=== PATIENT | male | born 1965 | race African-American/Black ===

== ENCOUNTER 2018-07-23 14:49 | Emergency (ER) | payer OTHER ==
[~2018-07-23] VITALS: Ht 170.2 cm; Wt 68.0 kg
[~2018-07-23 14:49] MED LIST: AMLO10TA80 PO; ATOR40TA70 PO; CARV6.2548 PO; CLOP75TA33 PO; LISI10TA5 PO
[2018-07-23] MEDS ORDERED: SODIUM CHLORIDE 0.9% 1,000 ML IV ONE (15:22)
[2018-07-23] MEDS ORDERED: DEXTROSE 50% WATER 50ML SYRINGE IV ONE (15:30)
[2018-07-23 17:02] LABS: BASOPHILS % 0.9 % (0.0-2.0); EOSINOPHILS % 3.1 % (0.0-5.0); HEMATOCRIT. 38.1 % (42.0-52.0); HEMOGLOBIN. 12.4 g/dL (14.0-18.0); LYMPHOCYTES % 17.1 % (20.0-50.0); MEAN CORPUSCULAR HEMOGLOBIN 30.3 pg (28.0-32.0); MEAN CORPUSCULAR VOLUME 92.8 fL (80.0-94.0); MEAN PLATELET VOLUME 11.1 fl (7.4-10.4); MONOCYTES % 7.6 % (2.0-8.0); NEUTROPHILS % 71.3 % (40.0-76.0); PLATELET 102 x1000/uL (130-400); RED BLOOD CELL COUNT 4.11 mill/uL (4.7-6.1); RED CELL DISTRIBUTION WIDTH 20.4 % (11.6-14.6)
[2018-07-23 17:03] LABS: CHLORIDE 101 mEq/L (98-107)
[2018-07-23 17:07] LABS: ETHANOL BLOOD < 10 mg/dL; INR 1.1; PARTIAL THROMBOPLASTIN TIME 30.1 sec (23.4-31.0); PROTHROMBIN TIME 11.1 sec (9.1-11.1)
[2018-07-23] MEDS ORDERED: SODIUM BICARBONATE 8.4% 1 MEQ/ML 50ML SYR IV ONE (18:00)
[2018-07-23] MEDS ORDERED: SODIUM POLYSTYRENE SULFONATE 15 G/60 ML BOT PO ONE (18:00)
[2018-07-23] MEDS ORDERED: ALBUTEROL (0.083%) 2.5MG/3ML NEB HHN ONE (18:00)
[2018-07-23 19:41] VITALS: BP 135/30
== END 2018-07-23 19:57 | disposition left against medical advice (07) ==
LOC: ER 14:56 → CANBEDREQ 22:03
DX: E11.649 Type 2 diabetes mellitus with hypoglycemia without coma (principal); E11.22 Type 2 diabetes mellitus with diabetic chronic kidney disease; I12.0 Hypertensive chronic kidney disease with stage 5 chronic kidney disease or end stage renal disease; N18.6 End stage renal disease; Z99.2 Dependence on renal dialysis; Z79.899 Other long term (current) drug therapy; Z86.73 Personal history of transient ischemic attack (TIA), and cerebral infarction without residual deficits
CPT/HCPCS: 36415; 70450; 71045; 80053; 80307; 80329; 82962; 83880; 84484; 85025; 85610; 85730; 93005; 94644; 96360; 99285; G0482; J3490; J7030; J7611

== ENCOUNTER 2018-10-08 16:17 | Inpatient (IN) | payer MEDICARE, OTHER ==
[~2018-10-08] VITALS: Ht 172.7 cm; Wt 73.1 kg
[2018-10-08 17:03] LABS: BASOPHILS % 1.1 % (0.0-2.0); EOSINOPHILS % 0.4 % (0.0-5.0); HEMATOCRIT. 42.2 % (42.0-52.0); HEMOGLOBIN. 13.3 g/dL (14.0-18.0); LYMPHOCYTES % 10.7 % (20.0-50.0); MEAN CORPUSCULAR HEMOGLOBIN 29.6 pg (28.0-32.0); MEAN CORPUSCULAR VOLUME 94.1 fL (80.0-94.0); MEAN PLATELET VOLUME 12.5 fl (7.4-10.4); MONOCYTES % 9.9 % (2.0-8.0); NEUTROPHILS % 77.9 % (40.0-76.0); PLATELET 135 x1000/uL (130-400); RED BLOOD CELL COUNT 4.48 mill/uL (4.7-6.1); RED CELL DISTRIBUTION WIDTH 19.1 % (11.6-14.6)
[2018-10-08] MEDS ORDERED: INSULIN REGULAR (HUMULIN R) UD 100 UNITS/ML SYR SUBCUT ONE (17:15)
[2018-10-08] MEDS ORDERED: IOHEXOL-350 100 ML BOTTLE ONE (17:19)
[2018-10-08] MEDS ORDERED: ONDANSETRON HCL 4MG/2ML INJ IV ONE (17:30)
[2018-10-08 17:34] LABS: BG BASE EXCESS -8.9 mmol/L (-2.0-2.0); BG CARBOXYHEMOGLOBIN 0.6 % (0.5-1.5); BG DEOXYHEMOGLOBIN 2.8 % (0.0-5.0); BG FRACTION INSPIRED OXYGEN 21; BG HCO3 ACT 15.4 mmol/L (22.0-26.0); BG METHEMOGLOBIN 0.1 % (0.0-1.5); BG OXYGEN SATURATION 97.2 % (92.0-98.5); BG OXYHEMOGLOBIN 96.5 % (94.0-97.0); BG PCO2 28.6 mmHg (35.0-45.0); BG PH 7.349 (7.350-7.450); BG PO2 102.8 mmHg (75.0-100.0); BG SAMPLE SITE RIGHT BRACHIAL; BG TOTAL HEMOGLOBIN 12.2 g/dL (12.0-18.0); BG VENT MODE ROOM AIR
[2018-10-08] MEDS ORDERED: INSULIN REGULAR (HUMULIN R) 300UNITS/3ML SUBCUT NR (17:45)
[2018-10-08 17:57] LABS: CHLORIDE 93 mEq/L (98-107)
[2018-10-08 17:57] LABS: INR 1.2; PARTIAL THROMBOPLASTIN TIME 26.8 sec (23.4-31.0); PROTHROMBIN TIME 11.8 sec (9.1-11.1)
[2018-10-08] MEDS ORDERED: PANTOPRAZOLE SODIUM 40 MG/VIAL IV ONE (18:00)
[2018-10-08 18:01] LABS: ETHANOL BLOOD < 10 mg/dL
[2018-10-08 18:03] LABS: BETA HYDROXYBUTYRATE 5.1 mMol/L (0.0-0.3)
[2018-10-08] MEDS ORDERED: SODIUM POLYSTYRENE SULFONATE 15 G/60 ML BOT PO ONE (18:15)
[2018-10-08] MEDS ORDERED: CALCIUM GLUCONATE 100MG/ML 10ML VIAL IV ONE (18:15)
[2018-10-08] MEDS ORDERED: INSULIN REGULAR (HUMULIN R) 300UNITS/3ML IV ONE (18:15)
[2018-10-08] MEDS ORDERED: SODIUM BICARBONATE 8.4% 1 MEQ/ML 50ML SYR IV ONE (18:15)
[2018-10-08] MEDS ORDERED: ALBUTEROL (0.083%) 2.5MG/3ML NEB HHN ONE (18:15)
[2018-10-08] MEDS ORDERED: INSULIN REGULAR (DRIP) 100 UNITS in SODIUM CHLORIDE 0.9% 100 ML IV ONE (18:45)
[2018-10-08] MEDS ORDERED: INSULIN REGULAR (DRIP) 100 UNITS in SODIUM CHLORIDE 0.9% 99 ML IV NR (19:15)
[2018-10-08] MEDS ORDERED: CLONIDINE 0.1MG TABLET PO PRN (20:45)
[2018-10-08] MEDS ORDERED: INSULIN REGULAR (DRIP) 100 UNITS in SODIUM CHLORIDE 0.9% 100 ML IV SCH (20:45)
[2018-10-08] MEDS ORDERED: DIPHENHYDRAMINE 50MG/ML VIAL IV PRN (20:45)
[2018-10-08] MEDS ORDERED: ACETAMINOPHEN 325MG TABLET PO PRN (20:45)
[2018-10-08] MEDS: SODIUM CHLORIDE 0.9% 500 ML IV SCH (21:15)
[2018-10-08 22:00] VITALS: BP 62/33
[2018-10-08] MEDS ORDERED: DEXTROSE 50% WATER 50ML SYRINGE IV PRN (22:00)
[2018-10-08] MEDS: BLOOD SUGAR DIAGNOSTIC STRIP TEST SCH ×2 (22:10→23:00)
[2018-10-08] MEDS: SODIUM CHLORIDE 0.9% 1,000 ML IV SCH (22:21)
[2018-10-08 22:30] VITALS: BP 114/38
[2018-10-08 23:00] VITALS: BP 102/28
[2018-10-08 23:30] VITALS: BP 102/48
[2018-10-09] VITALS (42 sets, daily range): BP systolic 50–209; BP diastolic 16–168
[2018-10-09] MEDS: BLOOD SUGAR DIAGNOSTIC STRIP TEST SCH ×12 (01:00→21:05)
[2018-10-09] MEDS: PHENYLEPHRINE 40 MG in DEXT 5% WATER 246 ML IV PRN ×3 (01:13→21:06)
[2018-10-09] MEDS: INSULIN REGULAR (DRIP) 100 UNITS in SODIUM CHLORIDE 0.9% 100 ML IV SCH ×2 (02:23→04:16)
[2018-10-09] MEDS: SODIUM CHLORIDE 0.9% 500 ML IV SCH (02:24)
[2018-10-09 04:59] LABS: HEMATOCRIT. 36.6 % (42.0-52.0); HEMOGLOBIN. 11.8 g/dL (14.0-18.0); MEAN CORPUSCULAR HEMOGLOBIN 28.9 pg (28.0-32.0); MEAN CORPUSCULAR VOLUME 89.6 fL (80.0-94.0); MEAN PLATELET VOLUME 11.5 fl (7.4-10.4); PLATELET 170 x1000/uL (130-400); RED BLOOD CELL COUNT 4.08 mill/uL (4.7-6.1); RED CELL DISTRIBUTION WIDTH 18.7 % (11.6-14.6)
[2018-10-09 05:10] LABS: CHLORIDE 102 mEq/L (98-107)
[2018-10-09 05:18] LABS: BETA HYDROXYBUTYRATE 0.1 mMol/L (0.0-0.3)
[2018-10-09] MEDS: ONDANSETRON HCL 4MG/2ML INJ IV PRN ×2 (08:40→19:59)
[2018-10-09] MEDS: SODIUM CHLORIDE 0.9% 1,000 ML IV SCH (11:29)
[2018-10-09] MEDS ORDERED: INSULIN GLARGINE UD 100 UNITS/ML SYR SUBCUT NR (12:00)
[2018-10-09 14:49] LABS: PLATELET ESTIMATE NORMAL
[2018-10-09] MEDS: MIDODRINE HCL 5MG TABLET PO SCH (17:12)
[2018-10-09] MEDS: INSULIN LISPRO 100 UNITS/ML SUBCUT SCH ×2 (17:13→21:02)
[2018-10-09 19:53] LABS: T4 FREE 1.24 ng/dL (0.76-1.46)
[2018-10-09] MEDS: ATORVASTATIN CALCIUM 40MG TABLET PO SCH (19:59)
[2018-10-09 20:05] LABS: VITAMIN B12 SERUM >2000 pg/mL pg/mL (211-911)
[2018-10-10] VITALS (102 sets, daily range): BP systolic 37–177; BP diastolic 17–156
[2018-10-10] MEDS: PHENYLEPHRINE 40 MG in DEXT 5% WATER 246 ML IV PRN ×4 (02:34→17:42)
[2018-10-10] MEDS: SODIUM CHLORIDE 0.9% 1,000 ML IV SCH ×2 (03:33→22:16)
[2018-10-10] MEDS: DEXTROSE 50% WATER 50ML SYRINGE IV PRN ×2 (03:33→23:43)
[2018-10-10 06:24] LABS: BASOPHILS % 0.5 % (0.0-2.0); EOSINOPHILS % 0.1 % (0.0-5.0); HEMATOCRIT. 35.8 % (42.0-52.0); HEMOGLOBIN. 11.6 g/dL (14.0-18.0); LYMPHOCYTES % 7.2 % (20.0-50.0); MEAN CORPUSCULAR HEMOGLOBIN 28.9 pg (28.0-32.0); MEAN CORPUSCULAR VOLUME 89.4 fL (80.0-94.0); MONOCYTES % 12.7 % (2.0-8.0); NEUTROPHILS % 79.5 % (40.0-76.0); PLATELET 153 x1000/uL (130-400); RED CELL DISTRIBUTION WIDTH 18.4 % (11.6-14.6)
[2018-10-10] MEDS: BLOOD SUGAR DIAGNOSTIC STRIP TEST SCH ×4 (07:50→20:37)
[2018-10-10] MEDS: INSULIN LISPRO 100 UNITS/ML SUBCUT SCH ×4 (08:20→20:38)
[2018-10-10] MEDS: MIDODRINE HCL 5MG TABLET PO SCH ×4 (09:27→17:12)
[2018-10-10] MEDS: CLOPIDOGREL 75MG TABLET PO SCH (09:27)
[2018-10-10] MEDS: ONDANSETRON HCL 4MG/2ML INJ IV PRN ×2 (09:40→21:43)
[2018-10-10] MEDS: HYDROCODONE/ACETAMINOPHEN 5/325MG TABLET PO PRN ×2 (13:03→17:16)
[2018-10-10] MEDS: INSULIN GLARGINE UD 100 UNITS/ML SYR SUBCUT SCH (13:05)
[2018-10-10] MEDS: CEFEPIME 1,000 MG in DEXTROSE 5% WATER 50 ML IV SCH (17:09)
[2018-10-10] MEDS: NOREPINEPHRINE 32 MG in DEXT 5% WATER 468 ML IV PRN (19:58)
[2018-10-10] MEDS: ATORVASTATIN CALCIUM 40MG TABLET PO SCH (20:37)
[2018-10-10] MEDS ORDERED: METRONIDAZOLE 250MG TABLET PO SCH (22:00)
[2018-10-10] MEDS: METRONIDAZOLE 500 MG PREMIX 100 ML IV SCH (22:10)
[2018-10-10 23:52] LABS: BG BASE EXCESS 1.5 mmol/L (-2.0-2.0); BG CARBOXYHEMOGLOBIN 0.5 % (0.5-1.5); BG DEOXYHEMOGLOBIN 0.9 % (0.0-5.0); BG FRACTION INSPIRED OXYGEN 32; BG HCO3 ACT 24.9 mmol/L (22.0-26.0); BG METHEMOGLOBIN 0.1 % (0.0-1.5); BG OXYGEN SATURATION 99.1 % (92.0-98.5); BG OXYHEMOGLOBIN 98.5 % (94.0-97.0); BG PCO2 35.1 mmHg (35.0-45.0); BG PH 7.468 (7.350-7.450); BG PO2 161.9 mmHg (75.0-100.0); BG SAMPLE SITE RIGHT BRACHIAL; BG TOTAL HEMOGLOBIN 12.2 g/dL (12.0-18.0); BG VENT MODE NASAL CANNULA
[2018-10-11] VITALS (108 sets, daily range): BP systolic 36–151; BP diastolic 13–121
[2018-10-11 05:51] LABS: BASOPHILS % 0.5 % (0.0-2.0); EOSINOPHILS % 0.2 % (0.0-5.0); HEMATOCRIT. 36.2 % (42.0-52.0); HEMOGLOBIN. 11.7 g/dL (14.0-18.0); LYMPHOCYTES % 9.8 % (20.0-50.0); MEAN CORPUSCULAR HEMOGLOBIN 28.9 pg (28.0-32.0); MEAN CORPUSCULAR VOLUME 89.6 fL (80.0-94.0); MEAN PLATELET VOLUME 11.7 fl (7.4-10.4); MONOCYTES % 7.1 % (2.0-8.0); NEUTROPHILS % 82.4 % (40.0-76.0); PLATELET 132 x1000/uL (130-400); RED BLOOD CELL COUNT 4.04 mill/uL (4.7-6.1); RED CELL DISTRIBUTION WIDTH 18.8 % (11.6-14.6)
[2018-10-11] MEDS: BLOOD SUGAR DIAGNOSTIC STRIP TEST SCH ×4 (07:50→21:50)
[2018-10-11] MEDS: INSULIN LISPRO 100 UNITS/ML SUBCUT SCH ×4 (08:20→21:00)
[2018-10-11] MEDS: MIDODRINE HCL 5MG TABLET PO SCH ×4 (10:35→17:17)
[2018-10-11] MEDS: CLOPIDOGREL 75MG TABLET PO SCH (10:35)
[2018-10-11] MEDS: METRONIDAZOLE 500 MG PREMIX 100 ML IV SCH ×2 (10:35→21:56)
[2018-10-11] MEDS: INSULIN GLARGINE UD 100 UNITS/ML SYR SUBCUT SCH (10:38)
[2018-10-11] MEDS: CEFEPIME 1,000 MG in DEXTROSE 5% WATER 50 ML IV SCH (16:50)
[2018-10-11] MEDS: ONDANSETRON HCL 4MG/2ML INJ IV PRN (17:44)
[2018-10-11] MEDS: ATORVASTATIN CALCIUM 40MG TABLET PO SCH (21:58)
[2018-10-11] MEDS: SODIUM CHLORIDE 0.9% 1,000 ML IV SCH (22:12)
[2018-10-11] MEDS ORDERED: PROPOFOL 10MG/ML 100ML 100 ML IV PRN (22:45)
[2018-10-12] VITALS (89 sets, daily range): BP systolic 58–183; BP diastolic 21–153
[2018-10-12] MEDS: ONDANSETRON HCL 4MG/2ML INJ IV PRN ×3 (02:14→16:13)
[2018-10-12] MEDS: DEXTROSE 50% WATER 50ML SYRINGE IV PRN (03:25)
[2018-10-12 06:21] LABS: BASOPHILS % 0.4 % (0.0-2.0); EOSINOPHILS % 0.2 % (0.0-5.0); HEMATOCRIT. 37.7 % (42.0-52.0); HEMOGLOBIN. 12.1 g/dL (14.0-18.0); LYMPHOCYTES % 10.1 % (20.0-50.0); MEAN CORPUSCULAR HEMOGLOBIN 28.9 pg (28.0-32.0); MEAN CORPUSCULAR VOLUME 90.2 fL (80.0-94.0); MEAN PLATELET VOLUME 11.2 fl (7.4-10.4); MONOCYTES % 6.9 % (2.0-8.0); NEUTROPHILS % 82.4 % (40.0-76.0); PLATELET 142 x1000/uL (130-400); RED BLOOD CELL COUNT 4.18 mill/uL (4.7-6.1); RED CELL DISTRIBUTION WIDTH 18.6 % (11.6-14.6)
[2018-10-12] MEDS: BLOOD SUGAR DIAGNOSTIC STRIP TEST SCH ×4 (07:50→21:34)
[2018-10-12] MEDS: INSULIN LISPRO 100 UNITS/ML SUBCUT SCH ×4 (08:20→21:00)
[2018-10-12] MEDS: METRONIDAZOLE 500 MG PREMIX 100 ML IV SCH ×2 (08:45→21:58)
[2018-10-12] MEDS: MIDODRINE HCL 5MG TABLET PO SCH ×4 (09:01→13:50)
[2018-10-12] MEDS: CLOPIDOGREL 75MG TABLET PO SCH (09:01)
[2018-10-12] MEDS: INSULIN GLARGINE UD 100 UNITS/ML SYR SUBCUT SCH (11:53)
[2018-10-12] MEDS: NOREPINEPHRINE 32 MG in DEXT 5% WATER 468 ML IV PRN (11:55)
[2018-10-12] MEDS ORDERED: PANTOPRAZOLE SODIUM 40 MG/VIAL IV SCH (12:45)
[2018-10-12] MEDS: METOCLOPRAMIDE HCL 10MG/2ML VIAL IV SCH ×2 (13:41→18:53)
[2018-10-12] MEDS: DEXT 5%/0.9% NACL 1,000 ML IV SCH (14:17)
[2018-10-12] MEDS: CEFEPIME 1,000 MG in DEXTROSE 5% WATER 50 ML IV SCH (16:14)
[2018-10-12 16:46] LABS: TOTAL IRON BINDING CAPACITY 186 ug/dL (250-450)
[2018-10-12] MEDS: ATORVASTATIN CALCIUM 40MG TABLET PO SCH (21:57)
[2018-10-12] MEDS: PANTOPRAZOLE SODIUM 40 MG/VIAL IV SCH (21:57)
[2018-10-13] VITALS (61 sets, daily range): BP systolic 83–175; BP diastolic 23–110
[2018-10-13] MEDS: METOCLOPRAMIDE HCL 10MG/2ML VIAL IV SCH ×4 (00:35→17:44)
[2018-10-13 07:02] LABS: BASOPHILS % 0.5 % (0.0-2.0); EOSINOPHILS % 0.7 % (0.0-5.0); HEMATOCRIT. 33.2 % (42.0-52.0); HEMOGLOBIN. 10.8 g/dL (14.0-18.0); LYMPHOCYTES % 11.1 % (20.0-50.0); MEAN CORPUSCULAR HEMOGLOBIN 29.1 pg (28.0-32.0); MEAN CORPUSCULAR VOLUME 89.7 fL (80.0-94.0); MEAN PLATELET VOLUME 11.1 fl (7.4-10.4); MONOCYTES % 7.9 % (2.0-8.0); NEUTROPHILS % 79.8 % (40.0-76.0); PLATELET 124 x1000/uL (130-400); RED CELL DISTRIBUTION WIDTH 18.3 % (11.6-14.6)
[2018-10-13] MEDS: BLOOD SUGAR DIAGNOSTIC STRIP TEST SCH ×4 (07:50→21:02)
[2018-10-13] MEDS: INSULIN LISPRO 100 UNITS/ML SUBCUT SCH ×4 (08:15→21:14)
[2018-10-13] MEDS: METRONIDAZOLE 500 MG PREMIX 100 ML IV SCH (08:27)
[2018-10-13] MEDS: PANTOPRAZOLE SODIUM 40 MG/VIAL IV SCH ×2 (08:27→21:02)
[2018-10-13] MEDS: MIDODRINE HCL 5MG TABLET PO SCH ×3 (08:28→16:02)
[2018-10-13] MEDS: CLOPIDOGREL 75MG TABLET PO SCH (08:28)
[2018-10-13] MEDS: DEXTROSE 50% WATER 50ML SYRINGE IV PRN (08:41)
[2018-10-13] MEDS: INSULIN GLARGINE UD 100 UNITS/ML SYR SUBCUT SCH (11:36)
[2018-10-13] MEDS: DEXT 5%/0.9% NACL 1,000 ML IV SCH (13:34)
[2018-10-13] MEDS: CEFEPIME 1,000 MG in DEXTROSE 5% WATER 50 ML IV SCH (16:02)
[2018-10-13] MEDS ORDERED: METRONIDAZOLE 500 MG PREMIX 100 ML IV SCH (21:00)
[2018-10-13] MEDS: ATORVASTATIN CALCIUM 40MG TABLET PO SCH (21:02)
== END 2018-10-13 22:25 | disposition short-term general hospital (02) | DRG 40 ==
LOC: ER 16:17 → EDBEDREQ 18:39 → CVICU 18:56 → EDBEDREQ 19:24 → EDBEDREQTM 19:24 → ENRESERV 20:22 → SUPCPDRO 20:29
PROVIDERS: ADMIT Hospitalist; ATTEND Hospitalist
PROC: 5A1D70Z Performance of Urinary Filtration, Intermittent, Less than 6 Hours Per Day (ICD-10-PCS; 2018-10-08)
PROC: 0JBR0ZZ Excision of Left Foot Subcutaneous Tissue and Fascia, Open Approach (ICD-10-PCS; principal; 2018-10-09)
PROC: 02HV33Z Insertion of Infusion Device into Superior Vena Cava, Percutaneous Approach (ICD-10-PCS; 2018-10-09)
PROC: B548ZZA Ultrasonography of Superior Vena Cava, Guidance (ICD-10-PCS; 2018-10-09)
PROC: 4A00X4Z Measurement of Central Nervous Electrical Activity, External Approach (ICD-10-PCS; 2018-10-10)
PROC: 5A1D70Z Performance of Urinary Filtration, Intermittent, Less than 6 Hours Per Day (ICD-10-PCS; 2018-10-10)
PROC: 5A1D70Z Performance of Urinary Filtration, Intermittent, Less than 6 Hours Per Day (ICD-10-PCS; 2018-10-11)
PROC: 5A1D70Z Performance of Urinary Filtration, Intermittent, Less than 6 Hours Per Day (ICD-10-PCS; 2018-10-13)
DX: I63.9 Cerebral infarction, unspecified (principal); E11.10 Type 2 diabetes mellitus with ketoacidosis without coma; G92 Toxic encephalopathy; N18.6 End stage renal disease; E87.0 Hyperosmolality and hypernatremia; I12.0 Hypertensive chronic kidney disease with stage 5 chronic kidney disease or end stage renal disease; K92.2 Gastrointestinal hemorrhage, unspecified; R57.9 Shock, unspecified; G81.94 Hemiplegia, unspecified affecting left nondominant side; E87.5 Hyperkalemia; D64.9 Anemia, unspecified; L85.3 Xerosis cutis; E11.22 Type 2 diabetes mellitus with diabetic chronic kidney disease; R29.810 Facial weakness; E11.51 Type 2 diabetes mellitus with diabetic peripheral angiopathy without gangrene; L89.629 Pressure ulcer of left heel, unspecified stage; E78.5 Hyperlipidemia, unspecified; I25.10 Atherosclerotic heart disease of native coronary artery without angina pectoris; Z95.1 Presence of aortocoronary bypass graft; Z99.2 Dependence on renal dialysis; Z79.899 Other long term (current) drug therapy
CPT/HCPCS: 36415; 36569; 36600; 70496; 70498; 70551; 71045; 76937; 80048; 80320; 82010; 82140; 82375; 82550; 82607; 82728; 82746; 82805; 82962; 83036; 83540; 83550; 83721; 84439; 84443; 84481; 84484; 92610; 93005; 93306; 93880; 93923; 93970; 94640; 96372; 96374; 96375; 99291; C1725; C9113; J0610; J0692; J1815; J2370; J2405; J2765; J3490; J7040; J7042; J7050; J7060; J7611; Q9967; G0480

== ENCOUNTER 2018-11-26 04:36 | Emergency (ER) | payer MEDICARE, OTHER ==
[~2018-11-26] VITALS: Ht 177.8 cm; Wt 86.3 kg
[2018-11-26] MEDS ORDERED: DEXTROSE 50% WATER 50ML SYRINGE IV ONE (05:00)
[2018-11-26 06:37] VITALS: BP 116/31
== END 2018-11-26 06:38 | disposition home or self-care (01) ==
LOC: ER 04:36
DX: E11.649 Type 2 diabetes mellitus with hypoglycemia without coma (principal); E11.22 Type 2 diabetes mellitus with diabetic chronic kidney disease; N18.6 End stage renal disease; Z99.2 Dependence on renal dialysis; Z88.8 Allergy status to other drugs, medicaments and biological substances; Z86.73 Personal history of transient ischemic attack (TIA), and cerebral infarction without residual deficits
CPT/HCPCS: 82962; 93005; 99283

== ENCOUNTER 2019-01-04 11:06 | Inpatient (IN) | payer OTHER, MEDICARE ==
[~2019-01-04] VITALS: Ht 170.2 cm; Wt 72.8 kg
[2019-01-04] VITALS (36 sets, daily range): BP systolic 63–133; BP diastolic 25–118
[2019-01-04] MEDS ORDERED: SODIUM CHLORIDE 0.9% 1,000 ML IV ONE (11:13)
[2019-01-04 11:26] LABS: BASOPHILS % 0.8 % (0.0-2.0); HEMATOCRIT. 29.5 % (42.0-52.0); HEMOGLOBIN. 9.3 g/dL (14.0-18.0); LYMPHOCYTES % 14.5 % (20.0-50.0); MEAN CORPUSCULAR HEMOGLOBIN 31.9 pg (28.0-32.0); MEAN CORPUSCULAR VOLUME 101.6 fL (80.0-94.0); MEAN PLATELET VOLUME 11.3 fl (7.4-10.4); MONOCYTES % 7.3 % (2.0-8.0); NEUTROPHILS % 75.4 % (40.0-76.0); PLATELET 92 x1000/uL (130-400); RED CELL DISTRIBUTION WIDTH 21.6 % (11.6-14.6)
[2019-01-04 11:35] LABS: INR 1.2
[2019-01-04 11:51] LABS: CHLORIDE 100 mEq/L (98-107)
[2019-01-04] MEDS ORDERED: VANCOMYCIN 1 G PREMIX 200 ML IV SCH (12:00)
[2019-01-04] MEDS ORDERED: PIPERACILLIN/TAZOBACTAM 3.375GM/50ML PREMIX IV ONE (12:00)
[2019-01-04] MEDS ORDERED: NOREPINEPHRINE 4MG/250ML PMX 250 ML IV ONE (13:15)
[2019-01-04] MEDS ORDERED: SODIUM CHLORIDE 0.9% 1,000 ML IV SCH (14:58)
[2019-01-04] MEDS ORDERED: ENOXAPARIN 40MG/0.4ML SYR SUBCUT SCH (15:00)
[2019-01-04] MEDS ORDERED: ACETAMINOPHEN 325MG TABLET PO PRN (15:00)
[2019-01-04] MEDS ORDERED: LORAZEPAM 2MG/ML CPJ IV PRN (15:00)
[2019-01-04] MEDS ORDERED: CLONIDINE 0.1MG TABLET PO PRN (15:00)
[2019-01-04] MEDS ORDERED: MAGNESIUM/ALUMINUM HYDROXIDE/SIMETHICONE 30ML UDC PO PRN (15:00)
[2019-01-04] MEDS ORDERED: NA PHOS,M-B/NA PHOS,DI-BA ENEMA 118ML PR PRN (15:00)
[2019-01-04] MEDS ORDERED: IPRATROPIUM/ALBUTEROL 0.5-3(2.5)MG/3ML NEB INH PRN (15:00)
[2019-01-04] MEDS ORDERED: PIPERACILLIN/TAZ 3.375G PREMIX 50 ML IV SCH (15:00)
[2019-01-04] MEDS ORDERED: GUAIFENESIN 200MG/10ML SUGAR FREE UDC PO PRN (15:00)
[2019-01-04] MEDS ORDERED: DOCUSATE SODIUM 100MG CAPSULE PO PRN (15:00)
[2019-01-04] MEDS ORDERED: INSULIN LISPRO 100 UNITS/ML SUBCUT NR ×2 (18:45→21:15)
[2019-01-04] MEDS: ENOXAPARIN 30MG/0.3ML SYR SUBCUT SCH (18:54)
[2019-01-04] MEDS: INSULIN LISPRO 100 UNITS/ML SUBCUT SCH ×2 (18:55→21:00)
[2019-01-04] MEDS: NOREPINEPHRINE 4 MG in DEXT 5% WATER 246 ML IV PRN (21:21)
[2019-01-04] MEDS: BLOOD SUGAR DIAGNOSTIC STRIP TEST SCH (21:24)
[2019-01-04] MEDS: PIPERACILLIN/TAZ 2.25G PREMIX 50 ML IV SCH (21:31)
[2019-01-04] MEDS: INSULIN GLARGINE UD 100 UNITS/ML SYR SUBCUT SCH (21:31)
[2019-01-05] VITALS (94 sets, daily range): BP systolic 54–207; BP diastolic 24–141
[2019-01-05] MEDS: DIPHENHYDRAMINE 50MG/ML VIAL IV PRN (03:30)
[2019-01-05 06:20] LABS: BASOPHILS % 0.7 % (0.0-2.0); EOSINOPHILS % 3.4 % (0.0-5.0); HEMATOCRIT. 28.4 % (42.0-52.0); HEMOGLOBIN. 9.3 g/dL (14.0-18.0); LYMPHOCYTES % 10.1 % (20.0-50.0); MEAN CORPUSCULAR HEMOGLOBIN 31.6 pg (28.0-32.0); MEAN CORPUSCULAR VOLUME 96.8 fL (80.0-94.0); MONOCYTES % 9.9 % (2.0-8.0); NEUTROPHILS % 75.9 % (40.0-76.0); PLATELET 152 x1000/uL (130-400); RED BLOOD CELL COUNT 2.93 mill/uL (4.7-6.1)
[2019-01-05] MEDS: PIPERACILLIN/TAZ 2.25G PREMIX 50 ML IV SCH ×3 (06:32→22:11)
[2019-01-05 06:55] LABS: CHLORIDE 99 mEq/L (98-107)
[2019-01-05 07:11] LABS: PHOSPHORUS 4.4 mg/dL (2.5-4.9)
[2019-01-05 07:12] LABS: LDL CHOLESTEROL 46 mg/dL (5-100)
[2019-01-05 07:13] LABS: CREATINE KINASE 51 IU/L (39-308); CREATINE KINASE MB FRACTION 2.7 ng/mL (0.5-3.6)
[2019-01-05 07:14] LABS: HDL CHOLESTEROL 58 mg/dL (40-59)
[2019-01-05 07:15] LABS: T4 FREE 1.09 ng/dL (0.76-1.46)
[2019-01-05] MEDS: NOREPINEPHRINE 4 MG in DEXT 5% WATER 246 ML IV PRN ×2 (08:31→20:14)
[2019-01-05] MEDS: ASPIRIN 81MG EC TABLET PO SCH (08:32)
[2019-01-05] MEDS: BLOOD SUGAR DIAGNOSTIC STRIP TEST SCH ×4 (08:36→21:18)
[2019-01-05] MEDS: INSULIN LISPRO 100 UNITS/ML SUBCUT SCH ×4 (08:36→21:17)
[2019-01-05] MEDS ORDERED: VANCOMYCIN 1 G PREMIX 200 ML IV SCH (14:00)
[2019-01-05 14:55] LABS: CLARITY URINE CLEAR (CLEAR); COLOR URINE YELLOW (YELLOW); KETONES URINE NEGATIVE (NEGATIVE); LEUKOCYTE ESTERASE URINE NEGATIVE (NEGATIVE); NITRITE URINE NEGATIVE (NEGATIVE); OCCULT BLOOD URINE NEGATIVE (NEGATIVE); PH URINE >=9.0 (4.5-8.0); PROTEIN URINE NEGATIVE (NEGATIVE); SPECIFIC GRAVITY URINE 1.005 (1.005-1.030); UROBILINOGEN URINE 0.2 E.U./dL (0.2-1.0)
[2019-01-05] MEDS: HYDROMORPHONE HCL/PF 2MG/ML CPJ IV PRN (16:35)
[2019-01-05] MEDS: ENOXAPARIN 30MG/0.3ML SYR SUBCUT SCH (18:25)
[2019-01-05 18:56] LABS: PHENCYCLIDINE URINE SCREEN NEGATIVE (NEGATIVE)
[2019-01-05 18:57] LABS: *AMPHETAMINES SCREEN URINE NEGATIVE (NEGATIVE); *BARBITURATES SCREEN URINE NEGATIVE (NEGATIVE); *BENZODIAZEPINES SCREEN URINE NEGATIVE (NEGATIVE); *COCAINE SCREEN URINE NEGATIVE (NEGATIVE); CANNABINOID URINE SCREEN NEGATIVE (NEGATIVE); METHADONE URINE SCREEN NEGATIVE (NEGATIVE); OPIATES URINE SCREEN NEGATIVE (NEGATIVE)
[2019-01-05] MEDS ORDERED: SUCR500T PO (20:49)
[2019-01-05] MEDS ORDERED: CINA30 PO (20:49)
[2019-01-05] MEDS ORDERED: SEVE800T8 PO (20:49)
[2019-01-05] MEDS ORDERED: HYDR-4001 PO (20:49)
[2019-01-05] MEDS ORDERED: GABA-531 PO (20:49)
[2019-01-05] MEDS: EPOETIN ALFA 10000UNITS/ML VIAL SUBCUT SCH (21:17)
[2019-01-05] MEDS: INSULIN GLARGINE UD 100 UNITS/ML SYR SUBCUT SCH (21:18)
[2019-01-06] VITALS (79 sets, daily range): BP systolic 70–152; BP diastolic 19–132
[2019-01-06] MEDS: HYDROMORPHONE HCL/PF 2MG/ML CPJ IV PRN ×2 (03:55→16:38)
[2019-01-06 06:00] LABS: BASOPHILS % 0.6 % (0.0-2.0); EOSINOPHILS % 4.7 % (0.0-5.0); HEMOGLOBIN. 8.6 g/dL (14.0-18.0); LYMPHOCYTES % 10.9 % (20.0-50.0); MEAN CORPUSCULAR HEMOGLOBIN 32.3 pg (28.0-32.0); MEAN CORPUSCULAR VOLUME 97.3 fL (80.0-94.0); MONOCYTES % 7.9 % (2.0-8.0); NEUTROPHILS % 75.9 % (40.0-76.0); PLATELET 122 x1000/uL (130-400); RED BLOOD CELL COUNT 2.67 mill/uL (4.7-6.1); RED CELL DISTRIBUTION WIDTH 20.8 % (11.6-14.6)
[2019-01-06] MEDS: PIPERACILLIN/TAZ 2.25G PREMIX 50 ML IV SCH ×3 (06:06→22:01)
[2019-01-06] MEDS: DEXTROSE 50% WATER 50ML SYRINGE IV PRN (07:07)
[2019-01-06] MEDS: BLOOD SUGAR DIAGNOSTIC STRIP TEST SCH ×4 (07:51→21:53)
[2019-01-06] MEDS: INSULIN LISPRO 100 UNITS/ML SUBCUT SCH ×4 (08:20→21:00)
[2019-01-06] MEDS: ASPIRIN 81MG EC TABLET PO SCH (09:29)
[2019-01-06] MEDS: ONDANSETRON HCL 4MG/2ML INJ IV PRN ×3 (11:06→21:54)
[2019-01-06] MEDS: HYDROCODONE/ACETAMINOPHEN 5/325MG TABLET PO PRN ×2 (12:07→15:57)
[2019-01-06] MEDS: DIPHENHYDRAMINE 50MG/ML VIAL IV PRN (12:24)
[2019-01-06] MEDS: ENOXAPARIN 30MG/0.3ML SYR SUBCUT SCH (17:42)
[2019-01-06] MEDS: INSULIN GLARGINE UD 100 UNITS/ML SYR SUBCUT SCH (21:53)
[2019-01-07] VITALS (78 sets, daily range): BP systolic 51–211; BP diastolic 17–155
[2019-01-07 06:31] LABS: BASOPHILS % 0.5 % (0.0-2.0); EOSINOPHILS % 5.8 % (0.0-5.0); HEMATOCRIT. 27.4 % (42.0-52.0); HEMOGLOBIN. 8.9 g/dL (14.0-18.0); LYMPHOCYTES % 12.9 % (20.0-50.0); MEAN CORPUSCULAR HEMOGLOBIN 32.3 pg (28.0-32.0); MEAN PLATELET VOLUME 11.8 fl (7.4-10.4); MONOCYTES % 8.1 % (2.0-8.0); NEUTROPHILS % 72.7 % (40.0-76.0); PLATELET 116 x1000/uL (130-400); RED BLOOD CELL COUNT 2.76 mill/uL (4.7-6.1); RED CELL DISTRIBUTION WIDTH 21.3 % (11.6-14.6)
[2019-01-07] MEDS: PIPERACILLIN/TAZ 2.25G PREMIX 50 ML IV SCH ×3 (07:00→22:59)
[2019-01-07 07:10] LABS: PHOSPHORUS 5.5 mg/dL (2.5-4.9)
[2019-01-07] MEDS: ASPIRIN 81MG EC TABLET PO SCH (08:25)
[2019-01-07] MEDS: INSULIN LISPRO 100 UNITS/ML SUBCUT SCH ×4 (08:26→21:00)
[2019-01-07] MEDS: BLOOD SUGAR DIAGNOSTIC STRIP TEST SCH ×4 (08:27→21:01)
[2019-01-07] MEDS: HYDROCODONE/ACETAMINOPHEN 5/325MG TABLET PO PRN ×2 (09:01→21:12)
[2019-01-07] MEDS: MIDODRINE HCL 5MG TABLET PO SCH ×2 (12:18→18:03)
[2019-01-07] MEDS: HYDROMORPHONE HCL/PF 2MG/ML CPJ IV PRN ×2 (12:33→23:27)
[2019-01-07] MEDS: NOREPINEPHRINE 4 MG in DEXT 5% WATER 246 ML IV PRN ×2 (12:43→21:11)
[2019-01-07] MEDS: ONDANSETRON HCL 4MG/2ML INJ IV PRN (17:26)
[2019-01-07] MEDS: ENOXAPARIN 30MG/0.3ML SYR SUBCUT SCH (18:03)
[2019-01-07] MEDS: INSULIN GLARGINE UD 100 UNITS/ML SYR SUBCUT SCH (22:59)
[2019-01-08] VITALS (106 sets, daily range): BP systolic 31–184; BP diastolic 17–135
[2019-01-08] MEDS: ONDANSETRON HCL 4MG/2ML INJ IV PRN (02:34)
[2019-01-08 05:50] LABS: BASOPHILS % 0.9 % (0.0-2.0); EOSINOPHILS % 5.1 % (0.0-5.0); HEMATOCRIT. 30.3 % (42.0-52.0); HEMOGLOBIN. 9.9 g/dL (14.0-18.0); LYMPHOCYTES % 12.8 % (20.0-50.0); MEAN CORPUSCULAR HEMOGLOBIN 31.4 pg (28.0-32.0); MEAN CORPUSCULAR VOLUME 96.7 fL (80.0-94.0); MEAN PLATELET VOLUME 10.8 fl (7.4-10.4); MONOCYTES % 11.1 % (2.0-8.0); NEUTROPHILS % 70.1 % (40.0-76.0); PLATELET 160 x1000/uL (130-400); RED BLOOD CELL COUNT 3.14 mill/uL (4.7-6.1); RED CELL DISTRIBUTION WIDTH 21.2 % (11.6-14.6)
[2019-01-08] MEDS: PIPERACILLIN/TAZ 2.25G PREMIX 50 ML IV SCH ×3 (06:05→21:46)
[2019-01-08] MEDS: NOREPINEPHRINE 4 MG in DEXT 5% WATER 246 ML IV PRN (07:16)
[2019-01-08] MEDS: BLOOD SUGAR DIAGNOSTIC STRIP TEST SCH ×4 (07:57→21:42)
[2019-01-08] MEDS: ASPIRIN 81MG EC TABLET PO SCH (08:47)
[2019-01-08] MEDS: MIDODRINE HCL 5MG TABLET PO SCH ×3 (08:47→17:49)
[2019-01-08] MEDS: INSULIN LISPRO 100 UNITS/ML SUBCUT SCH ×4 (08:48→21:46)
[2019-01-08] MEDS: NOREPINEPHRINE 4 MG in DEXTROSE 5% WATER 250 ML IV PRN ×2 (12:26→19:49)
[2019-01-08] MEDS: HYDROMORPHONE HCL/PF 2MG/ML CPJ IV PRN (17:01)
[2019-01-08] MEDS: ENOXAPARIN 30MG/0.3ML SYR SUBCUT SCH (17:50)
[2019-01-08] MEDS: INSULIN GLARGINE UD 100 UNITS/ML SYR SUBCUT SCH (21:46)
[2019-01-08] MEDS: EPOETIN ALFA 10000UNITS/ML VIAL SUBCUT SCH (21:56)
[2019-01-09] VITALS (104 sets, daily range): BP systolic 40–183; BP diastolic 19–105
[2019-01-09] MEDS: HYDROMORPHONE HCL/PF 2MG/ML CPJ IV PRN ×3 (00:59→20:56)
[2019-01-09] MEDS: NOREPINEPHRINE 4 MG in DEXTROSE 5% WATER 250 ML IV PRN ×3 (03:54→23:52)
[2019-01-09] MEDS: PIPERACILLIN/TAZ 2.25G PREMIX 50 ML IV SCH ×3 (06:03→22:09)
[2019-01-09 06:10] LABS: BASOPHILS % 0.5 % (0.0-2.0); EOSINOPHILS % 6.2 % (0.0-5.0); HEMATOCRIT. 30.3 % (42.0-52.0); HEMOGLOBIN. 9.9 g/dL (14.0-18.0); LYMPHOCYTES % 16.1 % (20.0-50.0); MEAN CORPUSCULAR HEMOGLOBIN 31.5 pg (28.0-32.0); MEAN CORPUSCULAR VOLUME 96.4 fL (80.0-94.0); MEAN PLATELET VOLUME 10.6 fl (7.4-10.4); MONOCYTES % 12.8 % (2.0-8.0); NEUTROPHILS % 64.4 % (40.0-76.0); PLATELET 171 x1000/uL (130-400); RED BLOOD CELL COUNT 3.14 mill/uL (4.7-6.1); RED CELL DISTRIBUTION WIDTH 21.2 % (11.6-14.6)
[2019-01-09] MEDS: BLOOD SUGAR DIAGNOSTIC STRIP TEST SCH ×4 (07:50→20:57)
[2019-01-09] MEDS: INSULIN LISPRO 100 UNITS/ML SUBCUT SCH ×4 (08:20→20:56)
[2019-01-09] MEDS: ASPIRIN 81MG EC TABLET PO SCH (09:12)
[2019-01-09] MEDS: MIDODRINE HCL 5MG TABLET PO SCH ×3 (09:12→17:59)
[2019-01-09] MEDS: ONDANSETRON HCL 4MG/2ML INJ IV PRN (09:17)
[2019-01-09 13:03] LABS: HEMATOCRIT 31.5 % (42.0-52.0); HEMOGLOBIN 10.3 g/dL (14.0-18.0)
[2019-01-09] MEDS ORDERED: BISACODYL 10MG SUPP PR SCH (13:15)
[2019-01-09] MEDS ORDERED: FAMOTIDINE 20MG/2ML VIAL IV SCH (13:30)
[2019-01-09] MEDS: METOCLOPRAMIDE HCL 10MG/2ML VIAL IV SCH ×2 (17:57→23:54)
[2019-01-09] MEDS ORDERED: LORAZEPAM 2MG/ML CPJ IV PRN (20:45)
[2019-01-09] MEDS: PANTOPRAZOLE SODIUM 40 MG/VIAL IV SCH (20:55)
[2019-01-09] MEDS: INSULIN GLARGINE UD 100 UNITS/ML SYR SUBCUT SCH (22:10)
[2019-01-10] VITALS (77 sets, daily range): BP systolic 76–146; BP diastolic 20–119
[2019-01-10] MEDS: HYDROMORPHONE HCL/PF 2MG/ML CPJ IV PRN ×3 (03:02→18:25)
[2019-01-10] MEDS: DEXTROSE 50% WATER 50ML SYRINGE IV PRN (05:41)
[2019-01-10] MEDS: METOCLOPRAMIDE HCL 10MG/2ML VIAL IV SCH ×3 (05:46→17:39)
[2019-01-10] MEDS: PIPERACILLIN/TAZ 2.25G PREMIX 50 ML IV SCH ×2 (05:46→15:12)
[2019-01-10 05:49] LABS: BASOPHILS % 1.1 % (0.0-2.0); EOSINOPHILS % 4.6 % (0.0-5.0); HEMATOCRIT. 29.7 % (42.0-52.0); HEMOGLOBIN. 9.6 g/dL (14.0-18.0); LYMPHOCYTES % 16.9 % (20.0-50.0); MEAN CORPUSCULAR HEMOGLOBIN 31.5 pg (28.0-32.0); MEAN PLATELET VOLUME 10.4 fl (7.4-10.4); MONOCYTES % 10.6 % (2.0-8.0); NEUTROPHILS % 66.8 % (40.0-76.0); PLATELET 172 x1000/uL (130-400); RED BLOOD CELL COUNT 3.06 mill/uL (4.7-6.1); RED CELL DISTRIBUTION WIDTH 20.4 % (11.6-14.6)
[2019-01-10] MEDS ORDERED: DEXT 5%/0.45% NACL 1000ML 1,000 ML IV SCH (07:15)
[2019-01-10] MEDS: BLOOD SUGAR DIAGNOSTIC STRIP TEST SCH ×4 (07:50→20:52)
[2019-01-10] MEDS: PANTOPRAZOLE SODIUM 40 MG/VIAL IV SCH ×2 (08:03→20:51)
[2019-01-10] MEDS: INSULIN LISPRO 100 UNITS/ML SUBCUT SCH ×4 (08:04→20:52)
[2019-01-10] MEDS: MIDODRINE HCL 5MG TABLET PO SCH ×3 (08:04→17:39)
[2019-01-10] MEDS: EPOETIN ALFA 10000UNITS/ML VIAL SUBCUT SCH (20:51)
[2019-01-11] MEDS ORDERED: ASPIRIN 81MG EC TABLET PO SCH (09:00)
== END 2019-01-10 21:40 | disposition short-term general hospital (02) | DRG 871 ==
LOC: ER 11:06 → CVICU 14:07 → EDBEDREQ 14:09 → EDBEDREQSVC 14:09 → ENRESERV 14:29
PROVIDERS: ADMIT Internal Medicine; ATTEND Internal Medicine
PROC: 05HY33Z Insertion of Infusion Device into Upper Vein, Percutaneous Approach (ICD-10-PCS; principal; 2019-01-04)
PROC: B54MZZA Ultrasonography of Right Upper Extremity Veins, Guidance (ICD-10-PCS; 2019-01-04)
PROC: 5A1D70Z Performance of Urinary Filtration, Intermittent, Less than 6 Hours Per Day (ICD-10-PCS; 2019-01-05)
PROC: 5A1D70Z Performance of Urinary Filtration, Intermittent, Less than 6 Hours Per Day (ICD-10-PCS; 2019-01-08)
PROC: 5A1D70Z Performance of Urinary Filtration, Intermittent, Less than 6 Hours Per Day (ICD-10-PCS; 2019-01-10)
DX: A41.9 Sepsis, unspecified organism (principal); E43 Unspecified severe protein-calorie malnutrition; G93.41 Metabolic encephalopathy; J69.0 Pneumonitis due to inhalation of food and vomit; J96.00 Acute respiratory failure, unspecified whether with hypoxia or hypercapnia; N18.6 End stage renal disease; R65.21 Severe sepsis with septic shock; N17.0 Acute kidney failure with tubular necrosis; I13.2 Hypertensive heart and chronic kidney disease with heart failure and with stage 5 chronic kidney disease, or end stage renal disease; I50.20 Unspecified systolic (congestive) heart failure; E11.52 Type 2 diabetes mellitus with diabetic peripheral angiopathy with gangrene; K92.2 Gastrointestinal hemorrhage, unspecified; Z99.2 Dependence on renal dialysis; E11.22 Type 2 diabetes mellitus with diabetic chronic kidney disease; D63.8 Anemia in other chronic diseases classified elsewhere; D69.6 Thrombocytopenia, unspecified; E11.319 Type 2 diabetes mellitus with unspecified diabetic retinopathy without macular edema; E11.621 Type 2 diabetes mellitus with foot ulcer; E11.622 Type 2 diabetes mellitus with other skin ulcer; E11.65 Type 2 diabetes mellitus with hyperglycemia; E78.5 Hyperlipidemia, unspecified; E83.39 Other disorders of phosphorus metabolism; F12.90 Cannabis use, unspecified, uncomplicated; G89.29 Other chronic pain; H54.8 Legal blindness, as defined in USA; H91.90 Unspecified hearing loss, unspecified ear; I25.10 Atherosclerotic heart disease of native coronary artery without angina pectoris; M54.9 Dorsalgia, unspecified; R26.9 Unspecified abnormalities of gait and mobility; I45.10 Unspecified right bundle-branch block; L97.509 Non-pressure chronic ulcer of other part of unspecified foot with unspecified severity; M85.80 Other specified disorders of bone density and structure, unspecified site; W19.XXXA Unspecified fall, initial encounter; Z79.4 Long term (current) use of insulin; Z95.1 Presence of aortocoronary bypass graft; I69.344 Monoplegia of lower limb following cerebral infarction affecting left non-dominant side; Z91.15 Patient's noncompliance with renal dialysis; Z79.84 Long term (current) use of oral hypoglycemic drugs
CPT/HCPCS: 36415; 36569; 71045; 73630; 74018; 76937; 80048; 80061; 80305; 82270; 82550; 82553; 82962; 83605; 83735; 83880; 84100; 84439; 84443; 84484; 85014; 85018; 85379; 87070; 87077; 87186; 93005; 93306; 93923; 93970; 96374; 99285; C1725; C9113; J0885; J1170; J1200; J1650; J1815; J2060; J2405; J2543; J2765; J3370; J3490; J7030; J7040; J7042; J7050; J7060